=== PATIENT | female | born 1935 | race Caucasian/White ===

== ENCOUNTER 2018-01-31 11:47 | Observation (INO) | payer MEDICARE, OTHER ==
[~2018-01-31 11:47] MED LIST: ISOVUE-370 76%-LOCM 1 ML ONE
[2018-01-31 12:59] LABS: #Basophils 0.1 thou/uL (0.0-0.2); #Eosinphils 0.2 thou/uL (0.0-0.7); #Lymphocytes 1.6 thou/uL (1.20-3.40); #Monocytes 0.5 thou/uL (0.11-0.59); #Neutrophils 3.3 thou/uL (1.40-6.50); %Basophils 1.2 % (0.0-1.0); %Eosinophils 4.1 % (0.0-10.0); %Lymphocytes 27.9 % (21.0-51.0); %Monocytes 8.9 % (0.0-10.0); %Neutrophils 57.9 % (42.0-75.0); Hemoglobin 14.1 g/dL (12.0-16.0); Mean Corpuscular HGB CONC 31.6 g/dL (32.0-36.0); Mean Corpuscular Hemoglobin 32.4 pg (27.0-31.0); Mean Platelet Volume 7.2 fL (7.4-10.4); Platelet Count 321 thou/uL (130-400); RBC Distribution Width 12.3 % (11.5-14.5); Red Blood Cell (RBC) Count 4.34 mill/uL (4.20-5.40); White Blood Cell (WBC) Count 5.7 thou/uL (4.8-10.8)
[2018-01-31 13:05] LABS: Prothrombin Time 12.8 SEC (12.0-14.7)
[2018-01-31 13:06] LABS: PTT 28.2 SEC (22.9-36.1)
[2018-01-31 13:17] LABS: ALT (SGPT) 13 U/L (8-55); AST (SGOT) 15 U/L (5-34); Albumin 3.4 g/dL (3.4-4.8); Alkaline Phosphatase 99 U/L (40-150); Anion Gap 12 mmol/L (10-20); BUN (Urea Nitrogen) 10 mg/dL (9.8-20.1); Bilirubin, Total 1.3 mg/dL (0.2-1.2); CK (CPK) 56 U/L (29-168); Calc. Creatinine Clearance 0 mL/min (70-130); Carbon Dioxide 25 mmol/L (23-31); Chloride 108 mmol/L (98-107); Estimated GFR-MDRD Greater than 90; Globulin 2.1 g/dL (2.4-3.5); Glucose 85 mg/dL (83-110); Potassium 3.7 mmol/L (3.5-5.1); Protein, Total 5.5 g/dL (6.0-8.3); Sodium 141 mmol/L (136-145)
[2018-01-31 13:20] LABS: CKMB 1.4 ng/mL (0-6.6); Troponin I Less than 0.010 ng/mL (< 0.028)
--- NOTE | 2018-01-31 13:26 | CT ---
CT BRAIN WITHOUT CONTRAST: History: Stroke. Comparison: None. FINDINGS: There is moderate atrophy with ex vacuo dilatation of the ventricular system and intraaxial CSF space s. No acute infarction. No midline shift of mass effect. Paranasal sinuses and mastoids are clear. IMPRESSION: No acute hemorrhage or infarction. Code CR. POS: [facility]
[2018-01-31] MEDS ORDERED: ALPRAZolam 0.25 MG TAB ONE (13:50)
--- NOTE | 2018-01-31 13:58 | CT ---
CT ANGIOGRAM HEAD WITH CONTRAST CT ANGIGRAM NECK WITH CONTRAST: History: Stroke alert. Fall. Comparison: None. Technique: CT angiogram of the head and neck performed after the intravenous administration of contra st. 3D rendering is provided. FINDINGS: Lung apices are clear. Thyroid is small. No cervical adenopathy. There are degenerative changes at the atlantodental interval. There is wilfrido listhesis of the degenerative nature, of C3 over C4, grade I. This is due to degenerative facet espinoza es. The C4-6 disc spaces are narrowed with uncinate process hypertrophy as well as anterior and poste rior disc osteophyte complexes. Moderate degenerative changes of both temporomandibular joints. Cervical condyles appear to intact. V isualized ribs are intact. 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 Origin of the right common c arotid artery is patent. Using NASCET criteria, there is no significant stenosis of the internal palma tid artery. The origin of the left common carotid artery is patent. Using NASCET criteria, there is n o hemodynamically significant stenosis of the internal carotid artery. The right vertebral artery is dominant. Both vertebral arteries are patent. The [place] of [place] is patent. Prominent left posterior communicating artery and both posterior cere bral arteries are patient. Both middle cerebral arteries are patent. Both anterior cerebral arteries are patent. No focal stenosis, thrombosis, or aneurysm formation. IMPRESSION: No focal stenosis, thrombosis or aneurysm formation. Code CR. Dr. Medina at 12:15 p.m. POS: [facility]
[2018-01-31 14:10] LABS: Bilirubin Negative (Negative); Blood, Urine Trace (Negative); Clarity CLEAR (Clear); Glucose, Urine (Dipstick) Negative (Negative); Leukocyte Negative (Negative); Nitrite Negative (Negative); Protein, Urine (Dipstick) Negative (Neg-Trace)
[2018-01-31 14:13] LABS: Bacteria/HPF None Seen HPF (None Seen); Hyaline Casts/LPF 7-10 HYALINE CAST LPF (0-3 Hyaline); Pathc Cast-AUWi Flag 1.74 (0-2.49)
[2018-01-31 14:26] LABS: Renal Epithelial None Seen HPF (0-3); Specific Gravity, Urine Greater than 1.060 (1.002-1.036); Transitional Epithelial NONE SEEN HPF (0-3)
--- NOTE | 2018-01-31 14:30 | RAD ---
SUPINE PORTABLE CHEST ONE VIEW: History: 82-year-old female with history of altered mental status. Exam is dated 12:03 p.m. 01-31-18 FINDINGS: Heart size is normal. The lungs are clear. Contrast media is noted within both right and left upper r enal collecting systems, secondary to prior contrast injection. IMPRESSION: No acute intrathoracic disease. Atherosclerosis of the aorta with ectasia. POS: [facility]
[2018-01-31] MEDS ORDERED: Sodium Chloride 0.9% 100 ML ONE (15:05)
[2018-01-31] MEDS ORDERED: cefTRIAXone\\ROCEPHIN 1 GM VIAL ONE (15:05)
[2018-01-31] MEDS ORDERED: Acetaminophen 325 MG TAB PO PRN (16:27)
[2018-01-31] MEDS ORDERED: Ondansetron PF 4 MG/2 ML Vial IVP PRN (16:27)
[2018-01-31] MEDS ORDERED: Ondansetron ODT 4 MG TAB SL PRN (16:27)
[2018-01-31] MEDS ORDERED: HYDROcodone/Acetaminophen 5/325 mg Tablet PO PRN ×2 (16:27)
[2018-01-31 16:36] VITALS: BMI 20.1
[2018-01-31] MEDS ORDERED: ALPRAZolam 0.25 MG TAB PO PRN (16:58)
--- NOTE | 2018-01-31 17:17 | HP ---
PRIMARY CARE PHYSICIAN: Clay Law M.D. CHIEF COMPLAINT: Altered mental status. HISTORY OF PRESENT ILLNESS: Ms. Gamble is an 82-year-old female who was brought to the emergency room by EMS after she was found at the alf with altered mental status. Patient has advanced alzheimers so history was obtained from . The patient's reports the patient has a 5-year history of Alzheimer's, is bedridden and reports that he went to visit her this morning to at [facility] and was greeted by nursing staff who stated that they could not arouse his . reports she was unresponsive until after she underwent CT scans, came back to the ED room and started to return to her baseline. He reports her nurse told him that she was fine overnight. She does have a new contusion to her left forehead and he states no one at the alf reported she fell out of bed. He does report that she complains of a pain in that location frequently and does rub it and is not sure if she rubbed it excessively, doubts that she fell out of bed. She does get around in a wheelchair but needs help with transfer. She is in a locked Memory Unit and has been there for the last 2 years. While in the emergency room, a head CT and CTA of the head and neck were unremarkable. Lab results are also unremarkable. She did have urinalysis which showed a specific gravity of greater than 1.060, trace amount of blood, some white blood cells, squamous cells, but no bacteria. She was started on some Rocephin. Patient denies any complaints and per family, she is currently at her baseline. She will be admitted overnight for observation for further evaluation. PAST MEDICAL HISTORY: Includes hypertension, hypothyroidism, chronic back pain , Alzheimer's, hyperlipidemia, insomnia. PAST SURGICAL HISTORY: Includes back surgery, had a small procedure to L4-L5, also reports having a kidney stone removed. PSYCHIATRIC HISTORY: The patient has a history of depression and Alzheimer's dementia. SOCIAL HISTORY: Denies any alcohol use. denies any drug use. She was a former tobacco smoker and quit more than 10 years ago. FAMILY HISTORY: reports that family history is noncontributory. ALLERGIES: No known drug allergies. Family reports she gets very agitated and combative with Morphine. CURRENT MEDICATIONS: Seroquel 25 mg p.o. daily, Lipitor 20 mg p.o. daily, Xanax 0.25 b.i.d. p.r.n. anxiety, Ultram 50 mg every 6 hours as needed for severe pain, L-thyroxine 75 mcg once a day, Wellbutrin 150 mg once a day, Avapro 300 mg once a day at bedtime, trazodone 50 mg oral at bedtime, Preparation-H rectally as needed b.i.d., melatonin 10 mg p.o. at bedtime, Motrin 200 mg every 6 hours as needed, Tylenol 500 mg every 8 hours scheduled and then may have every 6 hours p.r.n. REVIEW OF SYSTEMS: Patient is alert and oriented x1, which is baseline per family. All other systems are not reviewed based on current mental status. PHYSICAL EXAMINATION: VITAL SIGNS: Blood pressure 124/57, pulse is 78, respirations 16, temperature is 98, O2 sats are 97% on room air. CONSTITUTIONAL: The patient is oriented to person. HEENT: There is a contusion to the left forehead. Otherwise, normocephalic. Eyes: Eyelids are normal to inspection. Pupils are equally round and reactive to light. Extraocular muscles are intact. There is no nystagmus. ENT: Mucous membranes are moist. NECK: Normal range of motion. Trachea is midline. RESPIRATORY: No respiratory distress. Breath sounds are clear. CARDIOVASCULAR: Normal rate and rhythm. Heart sounds are normal. ABDOMEN: Female. Abdomen is nontender. Bowel sounds are present. No peritoneal signs. BACK: No tenderness on palpation. EXTREMITIES: Upper extremities, full range of motion. Sensation intact. Radial pulses are normal. Lower extremities, normal range of motion. Pedal pulses are normal. NEUROLOGIC: She is oriented to person, which per family is baseline. Speech is normal. SKIN: She does have extensive bruising to bilateral arms and right nicole, does have a contusion to left forehead. LABORATORY DATA AND IMAGING: Chest x-ray, no acute intrathoracic disease, arthrosclerosis of the aorta with ectasia. A CT angiogram of neck and head, impression of no focal stenosis or thrombosis or aneurysm formation. Brain CT, no acute hemorrhage or infarction. White blood cell count of 5.7, red blood cell 4.34, hemoglobin 14.1, hematocrit 44.5, MCV is 102, MCH is 32.4, MCHC is 31.6, MPV is 7.2. Coagulation INR is 1, PT is 12.88, PTT is 28.2. Sodium 141, potassium 3.7, chloride 108, carbon dioxide 25, anion gap is 12, BUN is 10, creatinine is 0.62, estimated GFR is 90, glucose 75. Point of care, lactic acid is 1.1, calcium is 9. Total bilirubin is 1.3, AST 15, ALT 13, alkaline phosphatase is 99. CK is 56, CK-MB is 1.4. Troponin 0.010. TSH is 1.08. EKG done in the emergency room shows a normal sinus rhythm, 69 beats per minute , conduction normal, ST segments normal, T waves are normal. [place] is normal. ASSESSMENT AND PLAN: 1. Altered mental status. We will order fluids for gentle hydration. We will continue Rocephin, which was started in the ER. We will obtain an MRI of the brain in the morning. We will obtain an Echo. We will culture her urine. We will await blood cultures. 2. Dementia/Alzheimer's. We will continue home medication. 3. Hyperlipidemia. We will continue home medication. 4. Anxiety/agitation. We will continue home Xanax. 5. Hypothyroidism. We will continue home medication. Hospital stay will depend on clinical course. OZ
[2018-01-31] MEDS: Sodium Chloride 0.9% 1,000 ML IV SCH (17:37)
[2018-01-31] MEDS ORDERED: Melatonin 3 MG TAB PO PRN (18:25)
[2018-01-31] MEDS ORDERED: traMADol HCl 50 MG TAB PO PRN (18:25)
[2018-01-31] MEDS: Famotidine 20 MG TAB PO SCH (20:09)
[2018-01-31] MEDS: Acetaminophen 500 MG TAB PO SCH (20:09)
[2018-01-31] MEDS ORDERED: Atorvastatin Calcium 20 MG TAB PO SCH (21:00)
[2018-01-31] MEDS ORDERED: traZODone HCl 50 MG TAB PO SCH (21:00)
[2018-02-01] MEDS: Sodium Chloride 0.9% 1,000 ML IV SCH (02:56)
[2018-02-01 05:05] LABS: #Eosinphils 0.3 thou/uL (0.0-0.7); #Lymphocytes 2.2 thou/uL (1.20-3.40); #Monocytes 0.5 thou/uL (0.11-0.59); #Neutrophils 2.7 thou/uL (1.40-6.50); %Basophils 0.4 % (0.0-1.0); %Eosinophils 4.9 % (0.0-10.0); %Lymphocytes 38.8 % (21.0-51.0); %Monocytes 9.5 % (0.0-10.0); %Neutrophils 46.5 % (42.0-75.0); Hemoglobin 12.5 g/dL (12.0-16.0); Mean Corpuscular HGB CONC 31.4 g/dL (32.0-36.0); Mean Corpuscular Hemoglobin 31.9 pg (27.0-31.0); Mean Platelet Volume 7.3 fL (7.4-10.4); Platelet Count 292 thou/uL (130-400); RBC Distribution Width 12.2 % (11.5-14.5); Red Blood Cell (RBC) Count 3.94 mill/uL (4.20-5.40); White Blood Cell (WBC) Count 5.7 thou/uL (4.8-10.8)
[2018-02-01 05:26] LABS: ALT (SGPT) 16 U/L (8-55); AST (SGOT) 18 U/L (5-34); Albumin 3.1 g/dL (3.4-4.8); Alkaline Phosphatase 83 U/L (40-150); Anion Gap 11 mmol/L (10-20); BUN (Urea Nitrogen) 10 mg/dL (9.8-20.1); Bilirubin, Total 0.8 mg/dL (0.2-1.2); Calc. Creatinine Clearance 52 mL/min (70-130); Calcium 8.5 mg/dL (7.8-10.44); Carbon Dioxide 25 mmol/L (23-31); Cardiac Risk 3.1 (Less than 4.5); Chloride 111 mmol/L (98-107); Cholesterol 119 mg/dl (< 200 Desired); Estimated GFR-MDRD 89; Globulin 1.8 g/dL (2.4-3.5); Glucose 88 mg/dL (83-110); HDL Cholesterol 39 mg/dL (>60 Neg Risk); LDL Cholesterol, Calculated 59 mg/dL; Potassium 3.5 mmol/L (3.5-5.1); Protein, Total 4.9 g/dL (6.0-8.3); Sodium 143 mmol/L (136-145); Triglycerides 107 mg/dL (Less than 150)
[2018-02-01] MEDS: Acetaminophen 500 MG TAB PO SCH ×2 (05:55→14:29)
[2018-02-01] MEDS ORDERED: Levothyroxine Sodium 75 MCG TAB PO SCH (06:00)
[2018-02-01] MEDS: Famotidine 20 MG TAB PO SCH (08:48)
[2018-02-01] MEDS ORDERED: Bupropion 150 MG XL TAB PO SCH (09:00)
[2018-02-01] MEDS ORDERED: Enoxaparin Sodium 30 MG/0.3 ML SYRINGE SC SCH (09:00)
[2018-02-01] MEDS ORDERED: cefTRIAXone\\ROCEPHIN 1 GM in Sodium Chloride 0.9% 100 ML IVPB SCH (13:00)
--- NOTE | 2018-02-01 15:21 | MRI ---
MRI BRAIN NONCONTRAST: DATE: 02/01/2018. HISTORY: An 82-year-old female with dementia experiencing acute worsening of altered mental status. COMPARISON: No prior brain MRIs. FINDINGS: There is moderate dilation of the lateral ventricles bilaterally and of the third ventricle. The fou rth ventricle is normal in size. There is diffuse brain parenchymal volume loss. There is a rim of T2 hyperintensity lining the lateral ventricles bilaterally, at least some of which, and probably all of which, represents moderate chronic ischemic white matter changes due to microvascular atheroscler osis. There is a small possibility that some of this could represent transependymal migration of CSF due to an obstructive hydrocephalus. There is no restricted diffusion to indicate any acute infarct ion. There is no evidence of remote intraaxial hemorrhage. No mass effect, midline shift, or extraa xial fluid collection. No interval change in the degree of ventriculomegaly compared to the CT of . IMPRESSION: 1. No acute findings. 2. Ventriculomegaly. 3. Involutional changes and moderate chronic ischemic white matter changes. PARKER Mathias POS: [facility]
[2018-02-01 21:17] VITALS: BP 137/80; TEMP 98.6
== END 2018-02-01 20:28 ==
LOC: ERS 11:47 → 2NO 16:22
PROVIDERS: ADMIT Family Medicine; ATTEND Family Medicine
DX: R41.82 Altered mental status, unspecified (principal); G30.9 Alzheimer's disease, unspecified; F02.81 Dementia in other diseases classified elsewhere, unspecified severity, with behavioral disturbance; E03.9 Hypothyroidism, unspecified; S00.83XA Contusion of other part of head, initial encounter; S40.022A Contusion of left upper arm, initial encounter; S40.021A Contusion of right upper arm, initial encounter; S80.11XA Contusion of right lower leg, initial encounter; I10 Essential (primary) hypertension; G89.29 Other chronic pain; M54.9 Dorsalgia, unspecified; G47.00 Insomnia, unspecified; F32.9 Major depressive disorder, single episode, unspecified; M16.12 Unilateral primary osteoarthritis, left hip; R26.81 Unsteadiness on feet; G62.9 Polyneuropathy, unspecified; E55.9 Vitamin D deficiency, unspecified; Z87.891 Personal history of nicotine dependence; Z79.899 Other long term (current) drug therapy; Z88.5 Allergy status to narcotic agent; Z98.890 Other specified postprocedural states
CPT/HCPCS: 51701; 70450; 70496; 70498; 70551; 71045; 80053; 80061; 82550; 82553; 82962; 83605; 84484; 85025; 85610; 85730; 87040; 87086; 93005; 93306; 94760; 96361 ×2; 96372; 96374; 96376; 99285; G0378 ×2; 36415; 36416; 81003; 81015; 84443; A4353; J0696; J1650; J7050

== ENCOUNTER 2018-09-18 09:35 | Emergency (ER) | payer MEDICARE, OTHER ==
[2018-09-18] MEDS ORDERED: Lidocaine 1% (PF) 30 ML VIAL ONE ×2 (09:57→10:21)
== END 2018-09-18 11:25 | disposition home or self-care (01) ==
LOC: ERS 09:35
DX: S01.81XA Laceration without foreign body of other part of head, initial encounter (principal); I10 Essential (primary) hypertension; E03.9 Hypothyroidism, unspecified; F03.90 Unspecified dementia, unspecified severity, without behavioral disturbance, psychotic disturbance, mood disturbance, and anxiety; E78.5 Hyperlipidemia, unspecified; G47.00 Insomnia, unspecified; F32.9 Major depressive disorder, single episode, unspecified; W18.30XA Fall on same level, unspecified, initial encounter; Z87.891 Personal history of nicotine dependence; Z79.899 Other long term (current) drug therapy
CPT/HCPCS: 12013; J2001